=== PATIENT | male | born 1990 | race Hispanic/Latino ===

== ENCOUNTER 2018-06-21 11:46 | Emergency (ER) | payer OTHER ==
[~2018-06-21] VITALS: Ht 170.2 cm; Wt 80.0 kg
[2018-06-21] MEDS ORDERED: TORADOL PO (13:14)
[2018-06-21] MEDS ORDERED: KEFLEX500 M1 PO (13:14)
[2018-06-21 13:31] VITALS: BP 123/69
== END 2018-06-21 13:37 | disposition home or self-care (01) | DRG 605 ==
LOC: ED 11:46
PROC: 0HQHXZZ Repair Right Upper Leg Skin, External Approach (ICD-10-PCS; principal; 2018-06-21)
DX: S71.111A Laceration without foreign body, right thigh, initial encounter (principal); W11.XXXA Fall on and from ladder, initial encounter; Y93.89 Activity, other specified; Y92.74 Orchard as the place of occurrence of the external cause; Y99.0 Civilian activity done for income or pay

== ENCOUNTER 2018-07-03 10:00 | Emergency (ER) | payer OTHER ==
[~2018-07-03] VITALS: Ht 170.2 cm; Wt 74.6 kg
[~2018-07-03 10:00] MED LIST: KEFLEX500 M1 PO; TORADOL PO
[2018-07-03 10:40] VITALS: BP 134/67
== END 2018-07-03 10:40 | disposition home or self-care (01) | DRG 950 ==
LOC: ED 10:00
DX: S71.111D Laceration without foreign body, right thigh, subsequent encounter (principal); X58.XXXD Exposure to other specified factors, subsequent encounter